=== PATIENT | male | born 1955 | race Caucasian/White ===

== ENCOUNTER 2021-05-18 10:52 | Outpatient (CLI) | payer OTHER, SELFPAY ==
[2021-05-18 11:09] VITALS: BP 143/82; PULSE 70; RESP 16; TEMP 36.6; O2SAT 98; BMI 40.6
[2021-05-18] MEDS: 0.9% Saline Lock 10 ML Syringe IV (11:09)
[2021-05-18 11:44] VITALS: BP 135/84; PULSE 66; RESP 16; TEMP 36.5; O2SAT 97
[2021-05-18 12:41] VITALS: BP 143/87; PULSE 66; RESP 16; TEMP 36.5; O2SAT 97
== END 2021-05-18 23:59 | disposition home or self-care (01) ==
LOC: MS3OUT 11:39 → MS3 11:40
PROVIDERS: Referring Provider Nurse Practitioner Adult Health; Visit Provider Nurse Practitioner Adult Health
DX: Z23 Encounter for immunization (principal); E11.9 Type 2 diabetes mellitus without complications; U07.1 COVID-19
CPT/HCPCS: M0245; Q0245